=== PATIENT | female | born 1960 | race Caucasian/White ===

== ENCOUNTER 2020-05-28 | Emergency (ER) | payer MEDICARE, MEDICAID ==
[2020-05-28] MEDS ORDERED: PLAVIX75 MG PO (21:23)
[2020-05-28] MEDS ORDERED: LISINOPRIL10 MG PO (21:28)
[2020-05-28] MEDS ORDERED: LOPRESSOR50 M1 PO (21:31)
[2020-05-28] MEDS ORDERED: PROTONIX40 M2 PO (21:33)
[2020-05-28] MEDS ORDERED: LASIX40 MG PO (21:33)
[2020-05-28] MEDS ORDERED: ASPIRIN325 MG PO (21:35)
[2020-05-28] MEDS ORDERED: KLOR-CON M2020 MEQ PO (21:35)
[2020-05-28] MEDS ORDERED: ALBUTEROL SUL0.083 % PO (21:36)
[2020-05-28] MEDS ORDERED: NITROSTAT0.4 MG SL (21:39)
[2020-05-28] MEDS ORDERED: SYMBICORT 80-4.5MCG (21:40)
== END 2020-05-28 22:55 | disposition left against medical advice (07) ==
DX: S40.022A Contusion of left upper arm, initial encounter (principal); S40.021A Contusion of right upper arm, initial encounter; S70.12XA Contusion of left thigh, initial encounter; S70.11XA Contusion of right thigh, initial encounter; I25.10 Atherosclerotic heart disease of native coronary artery without angina pectoris; Z91.19 Patient's noncompliance with other medical treatment and regimen; Z95.820 Peripheral vascular angioplasty status with implants and grafts; Y04.2XXA Assault by strike against or bumped into by another person, initial encounter